=== PATIENT | female | born 1995 | race Caucasian/White ===

== ENCOUNTER 2017-03-07 08:57 | Emergency (ER) | payer OTHER, MEDICAID ==
[2017-03-07 09:12] VITALS: BP 113/73
--- NOTE | 2017-03-07 10:19 | UC ---
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 fever on and tuesday. no sob, cp, bustamante, myalgias. - History of Current Complaint Chief Complaint: UCRespiratory Stated Complaint: THROAT,VOMITTING Time Seen by Provider: 03/07/17 09:17 Hx Obtained From: Patient Hx Last Menstrual Period: 02/20/17 ?: No Onset/Duration: Sudden Onset, Lasting Days, Still Present Severity: Moderate Cough: Nonproductive Associated Signs & Symptoms: Positive: Dysphagia - pain, Sinus Discomfort, Nasal Discharge, Fever, Vomiting. Negative: FB Sensation, Drooling, Wheezing, Hoarseness, Rash Related History: Seasonal Allergies - Epiglottits Risk Factors Epiglottis Risk Factors: Negative - Allergies/Home Medications Allergies/Adverse Reactions: Allergies Allergy/AdvReac Type Severity Reaction Status Date / Time dust Allergy Sneezing Uncoded 03/07/17 09:05 Home Medications: Home Medications Ibuprofen [Advil] 400 mg PO ONCE PRN 03/07/17 [History Confirmed 03/07/17] Pseudoephedrine TAB* [Sudafed TAB*] 30 mg PO Q4H PRN 03/07/17 [History Confirmed 03/07/17] PMH/Surg Hx/FS Hx/Imm Hx Previously Healthy: Yes - Surgical History Surgical History: Yes Surgery Procedure, Year, and Place: ENDOSCOPY - Family History Known Family History: Positive: Hypertension Negative: Cardiac Disease, Diabetes - Social History Lives: With Family Alcohol Use: None Substance Use Type: None Smoking Status (MU): Never Smoked Tobacco - Immunization History Most Recent Influenza Vaccination: not this season Vaccination Up to Date: Yes Review of Systems Constitutional: Fever Skin: Negative ENT: Sore Throat, Nasal Discharge, Sinus Congestion, Sinus Pain/Tenderness Respiratory: Cough Cardiovascular: Negative Gastrointestinal: Vomiting Musculoskeletal: Negative Neurological: Negative Psychological: Anxious All Other Systems Reviewed And Are Negative: Yes Physical Exam Triage Information Reviewed: Yes Appearance: Well-Appearing, No Pain Distress, Well-Nourished Vital Signs: Initial Vital Signs Temp 98.5 F 03/07/17 09:07 Pulse 98 03/07/17 09:07 Resp 16 03/07/17 09:07 BP 113/73 03/07/17 09:07 Pulse Ox 99 03/07/17 09:07 Vital Signs Reviewed: Yes Eyes: Positive: Conjunctiva Clear. Negative: Discharge ENT: Positive: Hearing grossly normal, Pharyngeal erythema, Nasal congestion, Nasal drainage, TMs normal, Tonsillar swelling, Sinus tenderness. Negative: Tonsillar exudate, Trismus, Muffled voice, Hoarse voice Neck: Positive: Supple, Nontender, Enlarged Nodes @ Respiratory: Positive: Chest non-tender, Lungs clear, Normal breath sounds, No respiratory distress, Expiration - prolonged at bl vases Cardiovascular: Positive: RRR, No Murmur Abdomen Description: Positive: Nontender, Soft. Negative: Distended, Guarding Bowel Sounds: Positive: Present Musculoskeletal Exam: Normal Neurological: Positive: Alert, Muscle Tone Normal Psychological: Positive: Age Appropriate Behavior Skin Exam: Normal Throat Pain/Nasal Course/Dx - Differential Dx/Diagnosis Differential Diagnosis/HQI/PQRI: Pharyngitis, Sinusitis, Tonsillitis, URI Provider Diagnoses: sinusitis, bronchospasm Discharge - Discharge Plan Condition: Stable Disposition: HOME Prescriptions: Albuterol HFA INHALER* [Ventolin HFA Inhaler*] 2 puff INH Q4H PRN #1 mdi PRN Reason: Sob/Wheezing Amoxicillin/Clavulanate SUSP* [Augmentin SUSP*] 875 mg PO BID #145 oral.susp Patient Education Materials: Sinusitis (ED), Bronchospasm (ED) Referrals: Cindy Mcbride MD [Medical Doctor] - 2 Days Additional Instructions: INHALED BRONCHODILATORS: You have received a prescription for an inhaled bronchodilator -- a medication which stimulates the airways in the lung to dilate. This improves the flow of air in asthma, bronchitis, and emphysema. These medicines have some similarity to adrenaline, and can cause similar side effects: shakiness, racing heart, and a sense of nervousness. These side effects decrease with time. Contact your doctor if these side effects are severe. Do not over-use the medicine. Too-frequent use of the inhaler may make it ineffective. Call your doctor if the inhaler is not controlling your symptoms at the prescribed doses. EXPECTORANT MEDICATION: An expectorant medicine has been prescribed. This type of drug makes mucous thinner, helping the sinuses, nose, and bronchial tubes to remain free of pus and mucous. Expectorants make a cough less severe and more comfortable, and help infected sinuses drain. In general, antihistamines defeat the purpose of the expectorant by making mucous thicker. They should be avoided unless specifically recommended by your physician. TESSALON PERLES: You have received a prescription for Tessalon Perles (benzonatate). This is a non-narcotic medicine for relief of cough. It usually works in about 15- 20 minutes and lasts around four hours. Tessalon Perles should be swallowed. They should not be chewed or dissolved in the mouth (this can produce temporary numbing of the mouth and choking can occur). If you develop any adverse effects such as wheezing, shortness of breath, hives, rash, itching, or lightheadedness, please return at once. AUGMENTIN: Augmentin is a mixture of amoxicillin and clavulanate. Amoxicillin is a member of the penicillin family. It covers the germs likely to cause ear, bronchial, and urinary infections better than plain penicillin. The addition of clavulanate allows it to cover staph infections of the skin, as well as resistant cases of ear and sinus infections. Your physician has chosen Augmentin for you because of the special nature of your situation. Augmentin is best taken with meals. Nausea after taking the medication is rare, but can occur. Diarrhea can occur, particularly in small children. Vaginal yeast infections, and oral thrush in infants are also common. Contact your physician if these problems occur. Allergy to penicillins is common. If you have had an allergic reaction to any drug of the penicillin family, you should never take any other penicillin. Notify your doctor at once if you develop hives, shortness of breath, swelling, or faintness. ANYTIME YOU TAKE AN ANTIBIOTIC, IT IS IMPORTANT TO REPLENISH THE BODY'S SUPPLY OF "GOOD BACTERIA." YOU CAN GET GOOD BACTERIA FROM HIGH QUALITY CULTURED FOODS SUCH LOCAL YOGURT, SOUR KRAUT, ELOISA GISELLE, NATURALLY FERMENTED PICKLES AND PROBIOTIC DRINKS. YOU CAN ALSO GET GOOD BACTERIA FROM A PROBIOTIC SUPPLEMENT.
== END 2017-03-07 10:20 | disposition home or self-care (01) ==
LOC: UCCORT 08:57
DX: J32.9 Chronic sinusitis, unspecified (principal); J98.01 Acute bronchospasm
CPT/HCPCS: 99212; G0463

== ENCOUNTER 2017-07-21 18:03 | Emergency (ER) | payer OTHER, MEDICAID ==
[2017-07-21 18:31] VITALS: BP 111/77
--- NOTE | 2017-07-21 18:40 | ED ---
Lower Extremity - HPI Summary HPI Summary: 21F presents with right hip pain for the past 4 days. She states the pain started when she was driving. She states that is started as a muscle spasms. She states the hip feels tight. She denies any back pain. She denies any numbness or tingling. She denies any weakness. She is still able to ambulate. She denies any saddle anaesthesia or loss of bowel or bladder. She denies any fever or recent illness. She states she has issues with her hips since she has danced for many years. She has been taking ibuprofen and stretching with some relief. 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 - History of Current Complaint Chief Complaint: UCLowerExtremity Stated Complaint: RIGHT HIP PAIN Time Seen by Provider: 07/21/17 18:24 Hx Last Menstrual Period: 07/02/17 Pain Intensity: 6 - Allergies/Home Medications Allergies/Adverse Reactions: Allergies Allergy/AdvReac Type Severity Reaction Status Date / Time dust Allergy Sneezing Uncoded 07/21/17 18:22 PMH/Surg Hx/FS Hx/Imm Hx Endocrine/Hematology History: Denies: Hx Diabetes Respiratory History: Denies: Hx Asthma - Surgical History Surgery Procedure, Year, and Place: ENDOSCOPY Infectious Disease History: No Infectious Disease History: Denies: Traveled Outside the [place] in Last 30 Days - Family History Known Family History: Positive: Hypertension Negative: Cardiac Disease, Diabetes - Social History Alcohol Use: Rare Substance Use Type: Reports: None Smoking Status (MU): Never Smoked Tobacco Review of Systems Negative: Fever Negative: Chest Pain Negative: Shortness Of Breath Positive: Myalgia - right hip pain All Other Systems Reviewed And Are Negative: Yes Physical Exam Triage Information Reviewed: Yes Vital Signs On Initial Exam: Initial Vitals Temp Pulse Resp BP Pulse Ox 99.2 F 77 16 111/77 100 07/21/17 18:24 07/21/17 18:24 07/21/17 18:24 07/21/17 18:24 07/21/17 18:24 Vital Signs Reviewed: Yes Appearance: Positive: Well-Appearing Skin: Positive: Warm, Dry Head/Face: Positive: Normal Head/Face Inspection Eyes: Positive: Normal, Conjunctiva Clear Respiratory/Lung Sounds: Positive: Clear to Auscultation, Breath Sounds Present Cardiovascular: Positive: Normal, RRR Musculoskeletal: Positive: Limited @ - right hip with pain greatest with flexion , Other - good pulses, sensation grossly intact, tenderness right hip, pos RALPH test. Negative: Edema Right Neurological: Positive: Reflexes Intact - patella Psychiatric: Positive: Normal Diagnostics - Vital Signs Vital Signs Temp Pulse Resp BP Pulse Ox 07/21/17 18:24 99.2 F 77 16 111/77 100 - Laboratory Lab Statement: Any lab studies that have been ordered have been reviewed, and results considered in the medical decision making process. Lower Extremity Course/Dx - Course Course Of Treatment: 21F presents with right hip pain for the past 4 days. She states the pain started when she was driving. She states that is started as a muscle spasms. She states the hip feels tight. She denies any back pain. She denies any numbness or tingling. She denies any weakness. She is still able to ambulate. She denies any saddle anaesthesia or loss of bowel or bladder. She denies any fever or recent illness. She states she has issues with her hips since she has danced for many years. She has been taking ibuprofen and stretching with some relief. 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 on exam nontender back. tenderness over right hip, neurovascular intact. pos ARLPH test. will treat with flexeril as patient describes the area has tight and will have follow up with primary. patient understand and agrees with plan. - Diagnoses Differential Diagnosis/HQI/PQRI: Positive: Fracture (Closed), Sprain, Strain Provider Diagnoses: Right hip pain Discharge - Sign-Out/Discharge Documenting (check all that apply): Discharge - Discharge Plan Condition: Good Disposition: HOME Prescriptions: Cyclobenzaprine TAB* [Flexeril 10 MG TAB*] 10 mg PO TID PRN #15 tab PRN Reason: Pain Patient Education Materials: Hip Pain (ED) Forms: *Work Release Referrals: ARUN Vazquez [Primary Care Provider] - Additional Instructions: Take muscle relaxers three times a day Use ibuprofen or Tylenol for pain every 6 hours ice/heat area, move as much as possible Follow up with primary if no improvement in a week Return to ED if develop any new or worsening symptoms - Billing Disposition and Condition Condition: GOOD Disposition: HOME
== END 2017-07-21 18:45 | disposition home or self-care (01) ==
LOC: UCCORT 18:03
DX: M25.551 Pain in right hip (principal)
CPT/HCPCS: 99212; G0463

== ENCOUNTER 2017-09-05 09:08 | Emergency (ER) | payer OTHER ==
[2017-09-05 09:26] VITALS: BP 112/78
--- NOTE | 2017-09-05 09:47 | UC ---
Complaint Female HPI - HPI Summary HPI Summary: Pt c/o dysuria, frequency, urgency, X 3 days. Pt has been taking OTC Azo for symptom relief. - History Of Current Complaint Chief Complaint: UCGU Stated Complaint: URINARY Time Seen by Provider: 09/05/17 09:21 Hx Obtained From: Patient Hx Last Menstrual Period: 08/25/17 ?: No Onset/Duration: Sudden Onset, Lasting Days, Still Present Timing: Constant Severity Initially: Mild Severity Currently: Mild Pain Intensity: 3 Pain Scale Used: 0-10 Numeric Character: Burning Aggravating Factor(s): Urination Associated Signs And Symptoms: Positive: Negative - Risk Factors Ectopic Risk Factor: Negative Ovarian Torsion Risk Factor: Reproductive Age - Allergies/Home Medications Allergies/Adverse Reactions: Allergies Allergy/AdvReac Type Severity Reaction Status Date / Time dust Allergy Sneezing Uncoded 07/21/17 18:22 Home Medications: Home Medications Cranberry Fruit Concentrate [Azo Cranberry] 250 mg PO DAILY 09/05/17 [History Confirmed 09/05/17] PMH/Surg Hx/FS Hx/Imm Hx Previously Healthy: Yes - Surgical History Surgical History: Yes Surgery Procedure, Year, and Place: ENDOSCOPY - Family History Known Family History: Positive: Hypertension Negative: Cardiac Disease, Diabetes - Social History Occupation: Employed Full-time Lives: With Family Alcohol Use: Rare Substance Use Type: None Smoking Status (MU): Never Smoked Tobacco Have You Smoked in the Last Year: No - Immunization History Most Recent Influenza Vaccination: not this season Vaccination Up to Date: Yes Review of Systems Constitutional: Negative Skin: Negative Eyes: Negative ENT: Negative Respiratory: Negative Cardiovascular: Negative Gastrointestinal: Negative Genitourinary: Dysuria, Frequency, Urgency Motor: Negative Neurovascular: Negative Musculoskeletal: Negative Neurological: Negative Psychological: Negative Is Patient Immunocompromised?: No All Other Systems Reviewed And Are Negative: Yes Physical Exam Triage Information Reviewed: Yes Appearance: Well-Appearing Vital Signs: Initial Vital Signs Temp 98.9 F 09/05/17 09:19 Pulse 96 09/05/17 09:19 Resp 15 09/05/17 09:19 BP 112/78 09/05/17 09:19 Pulse Ox 100 09/05/17 09:19 Vital Signs Reviewed: Yes Eye Exam: Normal ENT Exam: Normal Dental Exam: Normal Neck exam: Normal Respiratory Exam: Normal Cardiovascular Exam: Normal Abdominal Exam: Normal Abdomen Description: Positive: Nontender Musculoskeletal Exam: Normal Neurological Exam: Normal Psychological Exam: Normal Skin Exam: Normal Complaint Female Dx - Differential Dx/Diagnosis Differential Diagnosis/HQI/PQRI: Urinary Tract Infection Provider Diagnoses: Dysuria Discharge - Sign-Out/Discharge Documenting (check all that apply): Discharge/Admit/Transfer - Discharge Plan Condition: Stable Disposition: HOME Prescriptions: Cephalexin CAP* [Keflex 500 CAP*] 500 mg PO Q12H #14 cap Patient Education Materials: Dysuria (ED) Forms: *Work Release Referrals: ARUN Vazquez [Primary Care Provider] - If Needed - Billing Disposition and Condition Condition: STABLE Disposition: HOME
== END 2017-09-05 09:44 | disposition home or self-care (01) ==
LOC: UCCORT 09:08
DX: R30.0 Dysuria (principal); B96.4 Proteus (mirabilis) (morganii) as the cause of diseases classified elsewhere
CPT/HCPCS: 87077; 87086; 87184; 87186; 99212; G0463

== ENCOUNTER 2017-09-07 09:11 | Emergency (ER) | payer OTHER ==
[2017-09-07 09:44] VITALS: BP 113/73
--- NOTE | 2017-09-07 10:41 | UC ---
Complaint Female HPI - HPI Summary HPI Summary: Pt presents with c/o dysuria. Pt was seen on 09/03/17 for similar c/o. Was given cephalexin 500 mg PO Q12hrs X 7 days. Pt states that symptoms improved for 2-3 days after beginning medication, but woke today with worsening pelvic pressure , low back pain and generalized malaise this morning. Denies STD exposure - History Of Current Complaint Chief Complaint: UCGU Stated Complaint: URINARY Time Seen by Provider: 09/07/17 09:57 Hx Obtained From: Patient Hx Last Menstrual Period: 08/25/17 ?: No Onset/Duration: Sudden Onset, Lasting Days, Still Present Timing: Constant Severity Initially: Mild Severity Currently: Mild Pain Intensity: 3 Pain Scale Used: 0-10 Numeric Character: Dull, Burning Aggravating Factor(s): Urination Associated Signs And Symptoms: Positive: Back Pain - Risk Factors Ectopic Risk Factor: Negative Ovarian Torsion Risk Factor: Reproductive Age - Allergies/Home Medications Allergies/Adverse Reactions: Allergies Allergy/AdvReac Type Severity Reaction Status Date / Time dust Allergy Sneezing Uncoded 09/07/17 09:32 PMH/Surg Hx/FS Hx/Imm Hx Previously Healthy: Yes - Surgical History Surgical History: Yes Surgery Procedure, Year, and Place: ENDOSCOPY - Family History Known Family History: Positive: Hypertension Negative: Cardiac Disease, Diabetes - Social History Occupation: Employed Full-time Lives: With Family Alcohol Use: Rare Substance Use Type: None Smoking Status (MU): Current Some Day Smoker Amount Used/How Often: <1 cigarette monthly Have You Smoked in the Last Year: No - Immunization History Most Recent Influenza Vaccination: not this season Vaccination Up to Date: Yes Review of Systems Skin: Negative Eyes: Negative ENT: Negative Respiratory: Negative Cardiovascular: Negative Gastrointestinal: Negative Genitourinary: Dysuria, Frequency Motor: Negative Neurovascular: Negative Musculoskeletal: Negative Neurological: Negative Psychological: Negative Is Patient Immunocompromised?: No All Other Systems Reviewed And Are Negative: Yes Physical Exam Triage Information Reviewed: Yes Appearance: Well-Appearing Vital Signs: Initial Vital Signs Temp 97.8 F 09/07/17 09:33 Pulse 76 09/07/17 09:33 Resp 16 09/07/17 09:33 BP 113/73 09/07/17 09:33 Pulse Ox 100 09/07/17 09:33 Vital Signs Reviewed: Yes Eye Exam: Normal ENT Exam: Normal Dental Exam: Normal Neck exam: Normal Respiratory Exam: Normal Cardiovascular Exam: Normal Abdominal Exam: Other Abdomen Description: Positive: Other: - suprapubic discomfort Musculoskeletal Exam: Normal Neurological Exam: Normal Psychological Exam: Normal Skin Exam: Normal Complaint Female Dx - Course Course Of Treatment: urine culture from 09/03/17 still pending - Differential Dx/Diagnosis Differential Diagnosis/HQI/PQRI: Urinary Tract Infection, Other - dysuria Provider Diagnoses: dysuria Discharge - Sign-Out/Discharge Documenting (check all that apply): Discharge/Admit/Transfer - Discharge Plan Condition: Stable Disposition: HOME Prescriptions: Nitrofurantoin Monohyd/M-Cryst [Macrobid 100 mg Capsule] 100 mg PO Q12H #14 cap Patient Education Materials: Dysuria (ED) Referrals: ARUN Vazquez [Primary Care Provider] - If Needed - Billing Disposition and Condition Condition: STABLE Disposition: HOME
--- NOTE | 2017-09-09 08:05 | ED ---
Progress - Progress Note Progress Note: Discontinue the macrobid, and start Augmentin 875 mg bid for ten days. Course/Dx - Course Course Of Treatment: urine culture from 09/03/17 still pending Discharge - Sign-Out/Discharge Documenting (check all that apply): Discharge/Admit/Transfer - Discharge Plan Condition: Stable Disposition: HOME Prescriptions: Nitrofurantoin Monohyd/M-Cryst [Macrobid 100 mg Capsule] 100 mg PO Q12H #14 cap Patient Education Materials: Dysuria (ED) Referrals: ARUN Vazquez [Medical Doctor] - If Needed - Billing Disposition and Condition Condition: STABLE Disposition: HOME
== END 2017-09-07 10:09 | disposition home or self-care (01) ==
LOC: UCCORT 09:11
DX: R30.0 Dysuria (principal); F17.210 Nicotine dependence, cigarettes, uncomplicated
CPT/HCPCS: 99212; G0463

== ENCOUNTER 2018-04-15 15:21 | Emergency (ER) | payer OTHER ==
[2018-04-15 15:47] VITALS: BP 118/78
--- NOTE | 2018-04-15 15:53 | UC ---
Throat Pain/Nasal Mikey HPI - HPI Summary HPI Summary: Pt presents with c/o tender "lump" on right side lower jaw x [address], or dental injury. Has not seen a dentist in 2 years. - History of Current Complaint Chief Complaint: UCGeneralIllness Stated Complaint: SWOLLEN LYMPHNODE RIGHT SIDE Time Seen by Provider: 04/15/18 15:51 Hx Obtained From: Patient Hx Last Menstrual Period: 03/27/18 ?: No Onset/Duration: Sudden Onset, Lasting Weeks, Still Present Severity: Mild Pain Intensity: 3 Cough: None - Epiglottits Risk Factors Epiglottis Risk Factors: Negative - Allergies/Home Medications Allergies/Adverse Reactions: Allergies Allergy/AdvReac Type Severity Reaction Status Date / Time dust Allergy Sneezing Uncoded 04/15/18 15:40 PMH/Surg Hx/FS Hx/Imm Hx Previously Healthy: Yes - Surgical History Surgical History: Yes Surgery Procedure, Year, and Place: ENDOSCOPY - Family History Known Family History: Positive: Hypertension Negative: Cardiac Disease, Diabetes - Social History Occupation: Student Lives: With Family Alcohol Use: Occasionally Substance Use Type: None Smoking Status (MU): Current Some Day Smoker Amount Used/How Often: <1 cigarette monthly Have You Smoked in the Last Year: Yes - Immunization History Most Recent Influenza Vaccination: not this season Vaccination Up to Date: Yes Review of Systems All Other Systems Reviewed And Are Negative: Yes Constitutional: Positive: Negative Skin: Positive: Negative Eyes: Positive: Negative ENT: Positive: Negative Respiratory: Positive: Negative Cardiovascular: Positive: Negative Gastrointestinal: Positive: Negative Genitourinary: Positive: Negative Motor: Positive: Negative Neurovascular: Positive: Negative Musculoskeletal: Positive: Negative Neurological: Positive: Negative Psychological: Positive: Negative Is Patient Immunocompromised?: No Physical Exam Triage Information Reviewed: Yes Appearance: Well-Appearing Vital Signs: Initial Vital Signs Temp 98.7 F 04/15/18 15:42 Pulse 72 04/15/18 15:42 Resp 18 04/15/18 15:42 BP 118/78 04/15/18 15:42 Pulse Ox 100 04/15/18 15:42 Vital Signs Reviewed: Yes Eye Exam: Normal ENT Exam: Normal Dental Exam: Normal Dental: Positive: Other: - lower right gum slightly red and swollen, excoriated appearance. Neck: Positive: Enlarged Nodes @ - right side lower jaw 3 firm 1 cm "lumps" only submaxillary lymph node tender to touch. Throat Pain/Nasal Course/Dx - Course Course Of Treatment: Pt instructed to f/u with dental care provider and PCP as soon as possible - Differential Dx/Diagnosis Differential Diagnosis/HQI/PQRI: URI Provider Diagnosis: Lymphadenopathy of head and neck Discharge - Sign-Out/Discharge Documenting (check all that apply): Patient Departure All imaging exams completed and their final reports reviewed: No Studies - Discharge Plan Condition: Stable Disposition: HOME Prescriptions: Amoxicillin PO (*) [Amoxicillin 500 MG CAP*] 500 mg PO Q12H #14 cap Patient Education Materials: Lymphadenopathy (ED) Referrals: ARUN Vazquez [Primary Care Provider] - As Soon As Possible Additional Instructions: Please follow up with your PCP and your dental care provider as soon as possible. - Billing Disposition and Condition Condition: STABLE Disposition: Home
== END 2018-04-15 16:13 | disposition home or self-care (01) ==
LOC: UCCORT 15:21
DX: R59.1 Generalized enlarged lymph nodes (principal); F17.210 Nicotine dependence, cigarettes, uncomplicated
CPT/HCPCS: 99212; G0463